=== PATIENT | female | born 1960 ===

== ENCOUNTER 2018-05-26 11:42 | Day surgery (SDC) | payer SELFPAY ==
[2018-05-26] VITALS (8 sets, daily range): BP systolic 133–174; BP diastolic 68–95
[~2018-05-26] VITALS: Ht 165.1 cm; Wt 136.1 kg
[~2018-05-26 11:42] MED LIST: Cyclopentolate 1% Opth Sol 2ml RIGHT EYE SCH; Phenylephrine 2.5% Op 2ml Soln RIGHT EYE SCH; Proparacaine 0.5% Opth Soln 15ml RIGHT EYE ONE; Proparacaine 0.5% Opth Soln 15ml RIGHT EYE SCH; Tropicamide 1% Opth 15ml Soln RIGHT EYE SCH
[2018-05-26] MEDS ORDERED: Cyclopentolate 1% Opth Sol 2ml ONE (12:08)
[2018-05-26] MEDS ORDERED: Tropicamide 1% Opth 15ml Soln ONE (12:08)
[2018-05-26] MEDS ORDERED: Phenylephrine 2.5% Op 2ml Soln ONE (12:08)
[2018-05-26] MEDS ORDERED: Proparacaine 0.5% Opth Soln 15ml ONE (12:09)
[2018-05-26] MEDS: Tropicamide 1% Opth 15ml Soln RIGHT EYE SCH ×3 (12:25→12:46)
[2018-05-26] MEDS: Cyclopentolate 1% Opth Sol 2ml RIGHT EYE SCH ×3 (12:25→12:46)
[2018-05-26] MEDS: Phenylephrine 2.5% Op 2ml Soln RIGHT EYE SCH ×3 (12:25→12:46)
[2018-05-26] MEDS ORDERED: TRADJENTA5 MG PO (12:54)
[2018-05-26] MEDS ORDERED: LISINOPRIL40 MG ORAL (12:54)
[2018-05-26] MEDS ORDERED: MELOXICAM7.5 MG PO (12:54)
[2018-05-26] MEDS ORDERED: ZOCOR20 M1 ORAL (12:54)
[2018-05-26] MEDS ORDERED: ATENOLOL50 MG ORAL (12:54)
[2018-05-26] MEDS ORDERED: ESCITALOPRAM OX20 MG ORAL (12:54)
[2018-05-26] MEDS ORDERED: GLUCOVANCE 5-51 EACH PO (12:54)
[2018-05-26] MEDS ORDERED: CHLORTHALIDONE25 MG ORAL (12:54)
[2018-05-26] MEDS ORDERED: AMLODIPINE BESY10 MG ORAL (12:54)
[2018-05-26] MEDS ORDERED: Kenalog-40 1ml Vial ONE (12:57)
[2018-05-26] MEDS ORDERED: Carbachol 0.01% Op Soln 1.5ml vial ONE (12:57)
[2018-05-26] MEDS ORDERED: Lidocaine 2% MPF 5ml Vial INJ ONE (12:57)
[2018-05-26] MEDS ORDERED: EPINEPHrine 1mg/1ml Amp ONE (12:57)
[2018-05-26] MEDS ORDERED: Goniosol 2.5% Opth Soln - 15ml ONE (12:57)
[2018-05-26] MEDS ORDERED: Maxitrol Opth Oint 3.5gm ONE (12:58)
[2018-05-26] MEDS ORDERED: Dexamethasone 4mg/ml vial ONE (12:58)
[2018-05-26] MEDS ORDERED: Pred Forte 1% Opth Susp 1ml ONE (12:58)
[2018-05-26] MEDS ORDERED: Bupivacaine 0.75% 30ml vial INJ ONE (12:59)
[2018-05-26] MEDS ORDERED: Povidone-Iodine 5% opth solution ONE (12:59)
[2018-05-26] MEDS ORDERED: BSS 15ml BTL ONE (12:59)
[2018-05-26] MEDS ORDERED: BSS 500ml btl ONE (12:59)
[2018-05-26] MEDS ORDERED: Indocyanine Green 25mg Inj INJ ONE (13:15)
--- NOTE | 2018-05-26 13:59 | Pre-Procedure Note/Attestation ---
Pre-Procedure Note/Attestation Complete Prior to Procedure Planned Procedure: right Procedure Narrative: NCVH/TRD OD Indications for Procedure Pre-Operative Diagnosis: NCVH/TRD/Cataract OD Attestation I attest that I discussed the nature of the procedure; its benefits; risks and complications; and alternatives (and the risks and benefits of such alternatives ), prior to the procedure, with the patient (or the patient's legal commissary representative). I attest that, if there was a reasonable possibility of needing a blood transfusion, the patient (or the patient's legal commissary representative) was given the [facility] standardized written summary, pursuant to the Dominic Twila Blood Safety Act ([place] Health and Safety Code # 1645, as amended). I attest that I re-evaluated the patient just prior to the surgery and that there has been no change in the patient's H&P, except as documented below: Jonathan Yarbrough M.D., MD May 26, 2018 13:59
--- NOTE | 2018-05-26 14:01 | Operative Note - PDOC ---
Operative Note Operative Note Date of Operation/Procedure: May 26, 2018 Chief Complaint: Vision loss OD Pre-op Diagnosis: NCVH/TRD/Cataract OD Procedure: PPV/MP/EL/AFE/SF6/Avastin OD Post-op Diagnosis: Same Post-op Diagnosis: same as pre-op Anesthesia: local Specimen: none Complications: none Condition: stable Estimated Blood Loss: minimal Drains: none Implant(s) used?: No Indications for Procedure [place] [facility] [place] Pre[place]operative Diagnosis: Proliferative diabetic retinopathy with non-clearing vitreous hemorrhage, tractional retinal detachment, cataract, RIGHT EYE Post-operative Diagnosis: Same Procedure: Pars plana vitrectomy, tractional retinal detachment repair, membrane peel, endolaser, air-fluid exchange, infusion of SF6 (20%), RIGHT EYE Surgeon: Jonathan Yarbrough M.D. Anesthesia: Peribulbar Complications: None Indications for the procedure: The patient has vision loss due to proliferative diabetic retinopathy/ tractional retinal detachment/NCVH/Cataract and presents today for surgery. After review of the risks, benefits, alternative and the patient signed informed consent into the medical chart. Description of Procedure Procedure performed: The patient was met in the pre-op area where informed consent was reviewed. The operative eye was verified, marked and dilated. The patient was transferred to the operative suite, where cardiopulmonary monitoring was established and peribulbar anesthetic was administered without complications. The eye was prepped and draped in sterile ophthalmic fashion. Under microscope visualization the 23 gauge infusion line was placed inferotemporally. After visualization of the tip in the vitreous cavity, the infusion line was turned on. The superotemporal and superonasal cannulas were placed. Under BIOM visualization, peripheral and core vitrectomy was performed. As the vitreous was cleared, view of the posterior pole was improved. There was a notable cataract present. Inspection of the posterior pole revealed superior and nasal tractional membranes and gliosis with tractional retinal detachment. As the membranes were trimmed and peeled, there was flattening of the retina. Areas of hemorrhage were cauterized with endocautery and endolaser. Further peripheral vitrectomy was performed to release the charles-posterior traction. Using a combination of instruments, the posterior membranes were dissected to relieve tractional forces. As the membranes were removed, the retinal traction was reduced further. No stretch holes or iatrogenic breaks were noted. Endolaser was applied to perform complete PRP. Air-fluid exchange was performed. SF6 (20%) gas was infused. The cannulas were removed and sclerotomies were sutured (nasal). The eye maintained normal intraocular pressure. Subconjunctival vancomycin and dexamethasone were administered. The lid speculum was removed. The eye was cleaned of prep and drape. Atropine drop and Maxitrol ointment was applied. A pressure patch was placed. The patient was turned over to the anesthesia team and transferred in stable condition to the PACU. Jonathan Yarbrough M.D., MD May 26, 2018 14:01
[2018-05-26] MEDS ORDERED: Midazolam 2mg/2ml Inj ONE (14:12)
[2018-05-26] MEDS ORDERED: Propofol 200mg/20ml IV ONE (14:12)
[2018-05-26] MEDS ORDERED: LR 1000ml 1,000 ML IVLG SCH (14:19)
--- NOTE | 2018-05-26 14:24 | Anethesia Preoperative Eval ---
Anesthesia Pre-op PMH/ROS General Date of Evaluation: May 26, 2018 Time of Evaluation: 14:07 Anesthesiologist: Ashley ASA Score: ASA 3 Mallampati Score Class I : Soft palate, uvula, fauces, pillars visible Class II: Soft palate, uvula, fauces visible Class III: Soft palate, base of uvula visible Class IV: Only hard plate visible Mallampati Classification: Class III Surgeon: Linnea Diagnosis: Vitreous hemorrhage right eye Surgical Procedure: Vitrectomy, endolaser, gas injection Family History: no anesthesia problems Allergies: Coded Allergies: No Known Allergies (Unverified , 05/26/18) Medications: see eMAR Past Medical History Cardiovascular: Reports: HTN; Denies: CAD, CA, valve dz, arrhythmia, other Pulmonary: Denies: asthma, COPD, SHIKHA, other Gastrointestinal/Genitourinary: Denies: GERD, CRI, ESRD, other Neurologic/Psychiatric: Denies: dementia, CVA, depression/anxiety, TIA, other Endocrine: Reports: DM; Denies: hypothyroidism, steroids, other HEENT: Denies: cataract (L), cataract (R), glaucoma, CHEFORNAK (L), CHEFORNAK (R), other Hematology/Immune: Denies: anemia, DVT, bleeding disorder, other Musculoskeletal/Integumentary: Denies: OA, RA, DJD, DDD, edema, other Other: obesity PMH Narrative: HTN, DM, obesity PSxH Narrative: Abdominoplasty, cholecystectomy Anesthesia Pre-op Phys. Exam Physician Exam Last Vital Signs Date Time Temp Pulse Resp B/P (MAP) Pulse Ox O2 Delivery O2 Flow Rate FiO2 05/26/18 12:37 Room Air 05/26/18 12:34 97.6 61 18 155/86 (109) 100 97.6 Constitutional: NAD Neurologic: CN 2-12 intact Cardiovascular: RRR, no M/R/G Respiratory: CTA Gastrointestinal: S/NT/ND Airway Exam Mallampati Score: Class III MO: full ROM: full Teeth: intact Anesthesia Pre-op A/P Labs WNL Studies Pre-op Studies: EKG - NSR Risk Assessment & Plan Assessment: Class 3 patient with h/o DM, HTN and morbid obesity here for vitrectomy secondary to vitreous hemorrhage Plan: MAC Status Change Before Surgery: No Pre-Antibiotics Drug: None Dominic Ramirez MD May 26, 2018 14:24
--- NOTE | 2018-05-26 14:25 | Immediate Post-Op Evaluation ---
Immediate Post-Op Evalulation Immediate Post-Op Evalulation Procedure: Vitrectomy right eye Date of Evaluation: May 26, 2018 Time of Evaluation: 15:30 IV Fluids: 550 Blood Pressure Systolic: 174 Blood Pressure Diastolic: 87 Pulse Rate: 65 Respiratory Rate: 24 O2 Sat by Pulse Oximetry: 100 Pain Score (1-10): 0 Nausea: No Vomiting: No Complications No complication Patient Status: awake, patent, none Hydration Status: adequate Drug: None Dominic Ramirez MD May 26, 2018 14:25
[2018-05-26] MEDS ORDERED: fentaNYL 100 mcg/2 mL IV PRN (14:30)
[2018-05-26] MEDS ORDERED: Avastin 10mg Inj IVITRE ONE ×2 (14:30→15:00)
[2018-05-26] MEDS ORDERED: DiphenhydrAMINE 50mg/ml Inj IVP PRN (14:30)
--- NOTE | 2018-05-26 15:30 | 48 Hour Post Anesthesia Eval ---
Post Anesthesia Evaluation Procedure: Vitrectomy right eye Date of Evaluation: May 26, 2018 Time of Evaluation: 16:00 Blood Pressure Systolic: 175 0: 92 Pulse Rate: 63 Respiratory Rate: 22 O2 Sat by Pulse Oximetry: 99 Airway: patent Nausea: No Vomiting: No Pain Intensity: 2 Hydration Status: adequate Cardiopulmonary Status: Stable Mental Status/LOC: patient returned to baseline Follow-up Care/Observations: As per surgery Post-Anesthesia Complications: No anesthetic complication Dominic Ramirez MD May 26, 2018 15:30
== END 2018-05-26 16:30 | disposition home or self-care (01) ==
LOC: SUR 11:42
DX: H43.11 Vitreous hemorrhage, right eye (principal); E11.3531 Type 2 diabetes mellitus with proliferative diabetic retinopathy with traction retinal detachment not involving the macula, right eye; I13.10 Hypertensive heart and chronic kidney disease without heart failure, with stage 1 through stage 4 chronic kidney disease, or unspecified chronic kidney disease; E11.22 Type 2 diabetes mellitus with diabetic chronic kidney disease; N18.9 Chronic kidney disease, unspecified; E11.36 Type 2 diabetes mellitus with diabetic cataract; Z90.49 Acquired absence of other specified parts of digestive tract
CPT/HCPCS: 67113; 82962; J1100; J2250; J3010; J3370; J3490; J9035; 94003; 94150